=== PATIENT | male | born 1990 | race Caucasian/White ===

== ENCOUNTER 2016-08-11 00:27 | Emergency (ER) | payer OTHER ==
[2016-08-11 00:38] VITALS: TEMP 98.4
[2016-08-11] MEDS ORDERED: NS 1,000 ML IV ONE ×2 (00:46→01:40)
--- NOTE | 2016-08-11 00:53 | CPEKG ---
Heart Rate: 120 RR Interval: 500 P-R Interval: 144 QRSD Interval: 98 QT Interval: 328 QTC Interval: 464 P Bonita: 25 QRS Bonita: 64 T Wave Bonita: -24 EKG Severity - ABNORMAL ECG - EKG Impression: SINUS TACHYCARDIA Electronically Signed By: Marylin Henderson 11-Aug-2016 07:07:52
[2016-08-11 01:49] LABS: % IMMATURE GRANULYOCYTES 0.2 % (0.0-1.1); ABSOLUTE IMMATURE GRANULOCYTES 0.03 10^3/uL (0.00-0.10); ADD DIFF? NO; ADD MORPH? NO; ADD SCAN? NO; ATYPICAL LYMPHOCYTE FLAG 0 (0-99); FRAGMENT RBC FLAG 0 (0-99); LEFT SHIFT FLG 0 (0-99); LIPEMIA HEMOLYSIS FLAG 90 (0-99); MEAN CELL HEMOGLOBIN 29.3 pg (27.9-34.1); MEAN CELL HEMOGLOBIN CONCENTR. 34.8 g/dL (32.4-36.7); MEAN CELL VOLUME 84.1 fL (81.5-99.8); MEAN PLATELET VOLUME 11.4 fL (8.7-11.7); PLATELET CLUMPS FLAG 0 (0-99); PLATELET COUNT 319 10^3/uL (150-400); RED BLOOD CELL COUNT 5.47 10^6/uL (4.40-6.38); RED CELL DISTRIBUTION WIDTH 12.2 % (11.5-15.2)
[2016-08-11 01:55] LABS: ANION GAP 18 mEq/L (8-16); CALCIUM 10.9 mg/dL (8.5-10.4); CARBON DIOXIDE 22 mEq/l (22-31); CHLORIDE 104 mEq/L (97-110); CREATININE 1.2 mg/dL (0.7-1.3); GLOMERULAR FILTRATION RATE > 60; GLUCOSE 139 mg/dL (70-100); POTASSIUM 3.9 mEq/L (3.5-5.2); SODIUM 144 mEq/L (134-144)
--- NOTE | 2016-08-11 02:20 | EDPHY ---
H & P Smoking Status: Never smoked Time Seen by Provider: 08/11/16 01:09 HPI/ROS: CHIEF COMPLAINT: Feeling funny HISTORY OF PRESENT ILLNESS: This is a 26-year-old male patient presenting to the emergency department via EMS. Patient states while he was at the concert this evening he took some LSD from a person that was at the concert unknown whether was really [place] the. Patient states after concert he started feeling different" I am not feeling euphoric like a usually do when I take LSD". Patient complaining of palpitations dry mouth. Denies any chest pain or shortness of breath acting appropriate REVIEW OF SYSTEMS: Constitutional: No fever, no chills. Eyes: No discharge. No blurred vision ENT: No sore throat. Cardiovascular: No chest pain. palpitations. Respiratory: No cough, no shortness of breath. Gastrointestinal: No abdominal pain, no vomiting. Genitourinary: No hematuria. Musculoskeletal: No back pain. Skin: No rashes. Neurological: No headache. (Kassie Phillip) Physical Exam: General Appearance: Alert, no distress. Eyes: Pupils equal and round no pallor or injection. ENT, Mouth: Mucous membranes moist. Respiratory: There are no retractions, lungs are clear to auscultation. Cardiovascular: Regular rate and rhythm. Gastrointestinal: Abdomen is soft and nontender, no masses, bowel sounds normal. Neurological: No focal deficits answering questions appropriate Skin: Warm and dry, no rashes. Musculoskeletal: Neck is supple nontender. Extremities: symmetrical, full range of motion. Psychiatric: Patient is oriented X 3, acting appropriate. (Kassie Phillip) Constitutional: Initial Vital Signs Temperature (C) 36.9 C 08/11/16 00:37 Heart Rate 130 H 08/11/16 00:37 Respiratory Rate 16 08/11/16 00:37 Blood Pressure 167/108 H 08/11/16 00:37 O2 Sat (%) 95 08/11/16 00:37 O2 Delivery Mode Room Air Allergies/Adverse Reactions: No Known Allergies Allergy (Unverified 08/11/16 00:42) Home Medications: Medication Instructions Recorded NK [No Known Home Meds] 08/11/16 Medical Decision Making ED Course/Re-evaluation: Discussed the plan of care: EKG impression sinus tachycardia, CBC, BMP, UA drug screen re-evaluation 0240: Patient re-evaluation, no apparent distress, nonlabored respiratory effort AAO x3 no focal deficits heart rate 105 blood pressure 149/94. Discussed discharge instructions with patient do not take drugs. Rest tomorrow , increase fluid intake. Discharge home---> stable (Kassie Phillip) Differential Diagnosis: Other differential diagnosis considered but not limited to AMS due to drug intoxication, syncope, and AMS (Kassie Phillip) Other Provider: PHYSICIAN DOCUMENTATION: The patient was evaluated and managed by the Physician Systems Checkout Mechanic. My co- signature indicates that I have reviewed this chart and I agree with the findings and plan of care as documented. I am the secondary supervising physician. (Marylin Henderson) - Data Points Laboratory Results: Laboratory Results 08/11/16 00:35 08/11/16 00:35 08/11/16 08/11/16 08/11/16 00:50 00:35 00:35 WBC 13.46 10^3/uL H 10^3/uL (3.80-9.50) RBC 5.47 10^6/uL 10^6/uL (4.40-6.38) Hgb 16.0 g/dL g/dL (13.7-17.5) Hct 46.0 % % (40.0-51.0) MCV 84.1 fL fL (81.5-99.8) MCH 29.3 pg pg (27.9-34.1) MCHC 34.8 g/dL g/dL (32.4-36.7) RDW 12.2 % % (11.5-15.2) Plt Count 319 10^3/uL 10^3/uL (150-400) MPV 11.4 fL fL (8.7-11.7) Neut % (Auto) 72.8 % % (39.3-74.2) Lymph % (Auto) 22.7 % % (15.0-45.0) [place] % (Auto) 3.6 % L % (4.5-13.0) Eos % (Auto) 0.1 % L % (0.6-7.6) Baso % (Auto) 0.6 % % (0.3-1.7) Nucleat RBC Rel Count 0.0 % % (0.0-0.2) Absolute Neuts (auto) 9.80 10^3/uL H 10^3/uL (1.70-6.50) Absolute Lymphs (auto) 3.05 10^3/uL H 10^3/uL (1.00-3.00) Absolute Monos (auto) 0.48 10^3/uL 10^3/uL (0.30-0.80) Absolute Eos (auto) 0.02 10^3/uL L 10^3/uL (0.03-0.40) Absolute Basos (auto) 0.08 10^3/uL 10^3/uL (0.02-0.10) Absolute Nucleated RBC 0.00 10^3/uL 10^3/uL (0-0.01) Immature Gran % 0.2 % % (0.0-1.1) Immature Gran # 0.03 10^3/uL 10^3/uL (0.00-0.10) Sodium 144 mEq/L mEq/L (134-144) Potassium 3.9 mEq/L mEq/L (3.5-5.2) Chloride 104 mEq/L mEq/L (97-110) Carbon Dioxide 22 mEq/l mEq/l (22-31) Anion Gap 18 mEq/L H mEq/L (8-16) BUN 16 mg/dL mg/dL (7-23) Creatinine 1.2 mg/dL mg/dL (0.7-1.3) Estimated GFR > 60 Glucose 139 mg/dL H mg/dL (70-100) Calcium 10.9 mg/dL H mg/dL (8.5-10.4) Phosphorus 3.3 mg/dL mg/dL (2.5-4.5) Urine Opiates Screen NEGATIVE (NEGATIVE) Urine Barbiturates NEGATIVE (NEGATIVE) Ur Phencyclidine Scrn NEGATIVE (NEGATIVE) Ur Amphetamine Screen NEGATIVE (NEGATIVE) U Benzodiazepines Scrn NEGATIVE (NEGATIVE) Urine Cocaine Screen NEGATIVE (NEGATIVE) U Marijuana (THC) Screen NON-NEGATIVE H (NEGATIVE) Medications Given: Discontinued Medications Sodium Chloride (Ns) 1,000 mls @ 0 mls/hr IV ONCE ONE; Wide Open PRN Reason: Protocol Stop: 08/11/16 00:47 Last Admin: 08/11/16 00:51 Dose: 1,000 mls Sodium Chloride (Ns) 1,000 mls @ 0 mls/hr IV ONCE ONE; Wide Open PRN Reason: Protocol Stop: 08/11/16 01:41 Last Admin: 08/11/16 01:57 Dose: 1,000 mls Departure - Departure Disposition: Home, Routine, Self-Care Clinical Impression: LSD reaction Condition: Good Instructions: Polysubstance Abuse (ED) Additional Instructions: Please return to the emergency room if your feeling worse in any way.
[2016-08-11 02:40] VITALS: BP 159/109; PULSE 105; RESP 20; O2SAT 97
== END 2016-08-11 03:07 | disposition home or self-care (01) ==
LOC: EEVIPCON 00:27
DX: F16.10 Hallucinogen abuse, uncomplicated (principal)
CPT/HCPCS: 80305